=== PATIENT | female | born 1935 | race Caucasian/White ===

== ENCOUNTER → 2021-08-06 | Outpatient (REF) | payer MEDICARE ==
[~2021-08-06] MED LIST: /BENA20TA; COUM1TAB18; LIPI10TA; PERC5TAB8; THERGRAN
== END ==
LOC: M LAB REF 09:13
PROVIDERS: ATTEND Ophthalmology
DX: H02.831 Dermatochalasis of right upper eyelid (principal); H02.834 Dermatochalasis of left upper eyelid